=== PATIENT | male | born 1965 ===

== ENCOUNTER 2017-03-17 15:05 | Emergency (ER) | payer BC ==
--- NOTE | 2017-03-17 15:33 | EDM.PDOC ---
ED HPI GENERAL MEDICAL PROBLEM - General Chief Complaint: Head Injury Stated Complaint: FELL AND HIT HEAD Time Seen by Provider: 03/17/17 15:06 Source of Information: Reports: Patient History Limitations: Reports: No Limitations - History of Present Illness INITIAL COMMENTS - FREE TEXT/NARRATIVE: HISTORY AND PHYSICAL: History of present illness: Patient is a 51-year-old male who presents to the emergency room today with complaints of a head injury. He states he slipped on the ice on 03/13/2017 testing his head on the board of his truck and then on the ground. He reports "the next thing I know on being picked up off the ground". He reports he continued to work the rest of the day and the following 2 days without any problems but did have a mild headache. Yesterday the patient states he "woke on the ground" with an abrasion to his left cheek. He is unsure if asked out or fell. He denies any alcohol or drug abuse. He denies any recent illness. He reports he is on his way home to [facility] and "wanted to get looked at before I left". He denies any chest pain, shortness of breath, abdominal pain, nausea, vomiting or diarrhea. Unsure of last Tetanus immunization. Review of systems: As per history of present illness and below otherwise all systems reviewed and negative. Past medical history: As per history of present illness and as reviewed below otherwise noncontributory. Surgical history: As per history of present illness and as reviewed below otherwise noncontributory. Social history: No reported history of drug or alcohol abuse. Family history: As per history of present illness and as reviewed below otherwise noncontributory. Physical exam: Enteral: Well-developed and well-nourished 51-year-old male. Alert and oriented. Nontoxic appearing and in no acute distress. HEENT: Atraumatic, normocephalic, pupils reactive, negative for conjunctival pallor or scleral icterus, mucous membranes moist, Left tympanic membrane is not visable due to cerumen. Right tympanic membrane normal. His throat is clear , neck supple, nontender, trachea midline. Lungs: Clear to auscultation, breath sounds equal bilaterally, chest nontender. Heart: S1S2, regular rate and rhythm Abdomen: Soft, nondistended, nontender. Negative for masses or hepatosplenomegaly. Negative for costovertebral tenderness. Pelvis: Stable nontender. Genitourinary: Deferred. Rectal: Deferred. C-Spine/Back: No pinpoint vertebral tenderness upon palpation. He is able to walk on his toes and heels without difficulty. Gait is steady. Extremities: Moves all extremities per self, no tenderness with palpation of the upper and lower extremties. He is negative for cords or calf pain. Neurovascular unremarkable. Skin: Small abrasion noted to lower lip and right cheek (scabbed, appears several days old). Neuro: Awake, alert, oriented. Cranial nerves II through XII unremarkable. Cerebellum unremarkable. Motor and sensory unremarkable throughout. Exam nonfocal. Upon interviewing the patient she has multiple complaints. He states that he is concerned of his neck, thoracic back and head at this time. Imaging will be done on those. Due to the patient's complaint of syncope versus fall, I will do a cardiac workup. Patient is reluctant but agreeable. Patient refuses the Toradol and Tdap booster. Now states he had a tetanus booster 4 years ago. Patient's x-rays of the C-spine and thoracic spine are normal. Head CT is normal with no acute findings. This information was given to the patient. He states he is unable to void for the UA. Reports "as long as my head is fine... I'm ready to go". Due to the multiple complaints, I did offer to call the hospitalist to discuss admission - patient declines. He reports he feels safe to drive home and will follow up with his PCP when he get home to [facility]. Diagnostics: CBC, CMP, troponin, EKG, head CT, cervical spine x-ray, thoracic x-ray Therapeutics: Toradol Impression: Head injury Abrasion Plan: 1. May use Tylenol as needed [id number] for pain. Gentle heat to the areas as needed for comfort. When using ibuprofen please do not take more than the recommended dosing. 2. When you reach [facility] please follow-up with her primary care provider ( copy of all your labs were sent with you) in the next couple days. Return to the ED as needed and as discussed. Definitive disposition and diagnosis as appropriate pending reevaluation and review of above. Duration: Day(s): Location: Reports: Head, Neck, Back Associated Symptoms: Reports: Headaches. Denies: Confusion, Chest Pain, Cough, cough w sputum, Diaphoresis, Fever/Chills, Loss of Appetite, Malaise, Nausea/ Vomiting, Rash, Seizure, Shortness of Breath, Syncope, Weakness Treatments [employer]AFF WORKER: Reports: Acetaminophen, Aspirin, NSAIDS headache Pain Score (Numeric/FACES): 5 - Related Data Allergies Allergy/AdvReac Type Severity Reaction Status Date / Time No Known Allergies Allergy Verified 03/17/17 15:24 Home Meds: Home Meds . [No Known Home Meds] 03/17/17 [History] Past Medical History - Past Health History Medical/Surgical History: Denies Medical/Surgical History - Infectious Disease History Infectious Disease History: Reports: Chicken Pox Social & Family History - Family History Family Medical History: Noncontributory - Tobacco Use Smoking Status *Q: Never Smoker - Recreational Drug Use Recreational Drug Use: No ED ROS GENERAL - Review of Systems Review Of Systems: ROS reveals no pertinent complaints other than HPI. ED EXAM, HEAD INJURY - Physical Exam Exam: See Below (See dictation) Course - Vital Signs Last Recorded V/S: Last Vital Signs Temp 98.6 F 03/17/17 15:24 Pulse 81 03/17/17 15:24 Resp 18 03/17/17 15:24 BP 150/94 H 03/17/17 15:24 Pulse Ox 93 L 03/17/17 15:24 - Orders/Labs/Meds Orders: Active Orders 24 hr Category Date Time Status EKG Documentation Completion [RC] STAT Care 03/17/17 15:38 Active Vaccines to be Administered [RC] PER UNIT ROUTINE Care 03/17/17 15:39 Active DRUG SCREEN, URINE [URCHEM] Stat Lab 03/17/17 15:39 Uncollected UA W/MICROSCOPIC [URIN] Stat Lab 03/17/17 15:38 Uncollected Labs: Laboratory Tests 03/17/17 03/17/17 Range/Units 15:48 15:48 WBC 6.18 (4.0-11.0) K/uL RBC 5.18 (4.50-5.90) M/uL Hgb 15.2 (13.0-17.0) g/dL Hct 44.8 (38.0-50.0) % MCV 86.5 (80.0-98.0) fL MCH 29.3 (27.0-32.0) pg MCHC 33.9 (31.0-37.0) g/dL RDW Std Deviation 41.8 (28.0-62.0) fl RDW Coeff of Ольга 13 (11.0-15.0) % Plt Count 168 (150-400) K/uL MPV 11.70 (7.40-12.00) fL Neut % (Auto) 66.6 (48.0-80.0) % Lymph % (Auto) 25.7 (16.0-40.0) % Crawford % (Auto) 6.8 (0.0-15.0) % Eos % (Auto) 0.6 (0.0-7.0) % Baso % (Auto) 0.3 (0.0-1.5) % Neut # (Auto) 4.1 (1.4-5.7) K/uL Lymph # (Auto) 1.6 (0.6-2.4) K/uL Crawford # (Auto) 0.4 (0.0-0.8) K/uL Eos # (Auto) 0.0 (0.0-0.7) K/uL Baso # (Auto) 0.0 (0.0-0.1) K/uL Nucleated RBC % 0.0 /100WBC Nucleated RBCs # 0 K/uL Sodium 139 (136-146) mmol/L Potassium 3.8 (3.5-5.1) mmol/L Chloride 105 (98-110) mmol/L Carbon Dioxide 25 (21-31) mmol/L BUN 14 (6.0-23.0) mg/dL Creatinine 1.0 (0.6-1.5) mg/dL Est Cr Clr Drug Dosing 106.80 mL/min Estimated GFR (MDRD) > 60.0 ml/min Glucose 110 (60-110) mg/dL Calcium 9.3 (8.8-10.8) mg/dL Total Bilirubin 0.6 (0.1-1.5) mg/dL AST 20 (5-40) IU/L ALT 21 (8-54) IU/L Alkaline Phosphatase 41 (40-150) Troponin I < 0.10 (0.0-0.29) NG/ML Total Protein 7.1 (6.0-8.0) g/dL Albumin 4.4 (3.5-5.0) g/dL Globulin 2.7 (2.0-3.5) g/dL Albumin/Globulin Ratio 1.6 (1.3-2.8) Meds: Medications Discontinued Medications Generic Name Dose Route Start Last Admin Trade Name Velasquezq PRN Reason Stop Dose Admin Diphtheria/Tetanus/Acell Pertussis 0.5 ml 03/17/17 15:38 Adacel IM 03/17/17 15:39 .ONCE ONE Ketorolac Tromethamine 60 mg 03/17/17 15:38 Toradol IM 03/17/17 15:39 ONETIME ONE Departure - Departure Time of Disposition: 16:43 Disposition: Home, Self-Care 01 Clinical Impression: Abrasion Head injury Qualifiers: Encounter type: initial encounter Qualified Code(s): S09.90XA - Unspecified injury of head, initial encounter - Discharge Information Instructions: Head Injury, Adult, [id number] Referrals: PCP,None [Primary Care Provider] - Forms: ED Department Discharge Additional Instructions: My general discharge The following information is given to patients seen in the emergency department who are being discharged to home. This information is to outline your options for follow-up care. We provide all patients seen in our emergency department with a follow-up referral. The need for follow-up, as well as the timing and circumstances, are variable depending upon the specifics of your emergency department visit. If you don't have a primary care physician on staff, we will provide you with a referral. We always advise you to contact your personal physician following an emergency department visit to inform them of the circumstance of the visit and for follow-up with them and/or the need for any referrals to a consulting specialist. The emergency department will also refer you to a specialist when appropriate. This referral assures that you have the opportunity for follow-up care with a specialist. All of these measure are taken in an effort to provide you with optimal care, which includes your follow-up. Under all circumstances we always encourage you to contact your private physician who remains a resource for coordinating your care. When calling for follow-up care, please make the office aware that this follow-up is from your recent emergency room visit. If for any reason you are refused follow-up, please contact the [facility] Emergency Department at and asked to speak to the emergency department charge nurse. [facility] [address] [place] [id number] 1. May use Tylenol as needed [id number] for pain. Gentle heat to the areas as needed for comfort. When using ibuprofen please do not take more than the recommended dosing. 2. When you reach [facility] please follow-up with her primary care provider ( copy of all your labs were sent with you) in the next couple days. Return to the ED as needed and as discussed. - My Orders Last 24 Hours: My Active Orders 03/17/17 15:38 EKG Documentation Completion [RC] STAT UA W/MICROSCOPIC [URIN] Stat 03/17/17 15:39 Vaccines to be Administered [RC] PER UNIT ROUTINE DRUG SCREEN, URINE [URCHEM] Stat - Assessment/Plan Last 24 Hours: My Active Orders 03/17/17 15:38 EKG Documentation Completion [RC] STAT UA W/MICROSCOPIC [URIN] Stat 03/17/17 15:39 Vaccines to be Administered [RC] PER UNIT ROUTINE DRUG SCREEN, URINE [URCHEM] Stat
[2017-03-17] MEDS ORDERED: Diphtheria,Pertussis(Acell),Tetanus Vaccine 0.5 ML Syringe IM ONE (15:38)
[2017-03-17] MEDS ORDERED: Ketorolac 60 MG/2 ML SDV IM ONE (15:38)
--- NOTE | 2017-03-17 16:20 | CT ---
EXAMINATION: Non contrast CT head. Coronal and sagittal reformats. HISTORY: Fall FINDINGS: No evidence of intra or extra axial hemorrhage, mass, midline shift, hydrocephalus or edema. No hypoattenuation changes in the major vascular territories to suggest acute infarct. No abnormal intracranial calcifications are detected. No evidence of substantial vascular calcificat ions. Paranasal sinuses and mastoid air cells are well aerated without substantial findings. Orbits and gl obes are symmetric. Pituitary fossa appears unremarkable. Calvarium is intact. No evidence of skull fracture. IMPRESSION: No acute intracranial findings.
[2017-03-17 16:28] LABS: CHLORIDE,CL 105 mmol/L (98-110); SODIUM,NA 139 mmol/L (136-146)
--- NOTE | 2017-03-17 16:34 | CR ---
EXAMINATION: Cervical and thoracic spine HISTORY: Fall COMPARISON: None TECHNIQUE: AP and lateral views of the cervical and thoracic spine FINDINGS: The cervical and thoracic spinal alignment appears grossly normal. The vertebral body heigh ts and disc spaces appear maintained. No fracture or acute osseous abnormality. Bone mineralization i s normal. Prevertebral soft tissues are normal. Visualized lungs are clear. IMPRESSION: Grossly unremarkable cervical and thoracic spinal radiographs.
== END 2017-03-17 17:00 | disposition home or self-care (01) ==
LOC: MW.ED 15:05
DX: S09.90XA Unspecified injury of head, initial encounter (principal); S00.511A Abrasion of lip, initial encounter; S00.81XA Abrasion of other part of head, initial encounter; W00.0XXA Fall on same level due to ice and snow, initial encounter
CPT/HCPCS: 36415; 70450; 70450-26; 72040; 72040-26; 72072; 72072-26; 80053; 84484; 85025; 93005; 99284; 99285-25